=== PATIENT | female | born 1985 | race Caucasian/White ===

== ENCOUNTER 2016-12-01 12:45 | Emergency (ER) | payer BC ==
[~2016-12-01] VITALS: Ht 175.3 cm; Wt 92.9 kg
[2016-12-01 12:56] VITALS: TEMP 36.8; Ht 175.3 cm; Wt 92.9 kg
[2016-12-01] MEDS ORDERED: NPR500 PO (13:24)
[2016-12-01] MEDS ORDERED: ONDANSETRON INJ 2 MG/ML 2 ML VIAL IV STA (13:37)
[2016-12-01] MEDS ORDERED: SODIUM CHLORIDE 0.9% 1000ML 1,000 ML IV STA (13:37)
[2016-12-01] MEDS ORDERED: MoRPHine SULFATE 4 MG/ML 1 ML CARP\\VIAL IV PRN (13:45)
[2016-12-01] MEDS ORDERED: DEXAMETHASONE SOD INJ 10 MG/ML VIAL IV ONE (13:45)
--- NOTE | 2016-12-01 13:48 | EMERGENCY ROOM VISIT NOTE ---
History Report prepared by Abdelrahman: Ferdinand Kline Under the Supervision of: Dr. Raphael Gaspar D.O. First contact with patient: 13:24 Chief Complaint: HEADACHE Stated Complaint: EXTREME PAIN IN L ARM AND NECK, MIGRAINE History of Present Illness The patient is a 31 year old female with a history of migraines who presents to the Emergency Room with complaints of worsening left arm pain that started around 8 day ago. She says that she started having a migraine headache 8 days ago, and that was accompanied with left shoulder and arm pain. She additionally has been having left shoulder and arm numbness and tingling, that radiates into the left side of her back and neck. The patient has been having nausea and episodes of vomiting in the mornings when headache is the worst. She notes that the migraine headache pain is behind her left eye, but the headache has been intermittent. The shoulder and arm pain have been constant, and have been worsening each day. She has gone to Urgent Care 3 times for the pain, and each time she was told that she probably just had a pinched nerve, but they could not do anything for her there. She describes the arm pain as if she "slept on it wrong". She has never had arm pain with her migraines before, and she has been having migraines since she was 14 years old. Her migraines have been getting less frequent recently, so she has not been on any medications for it. The patient denies any shortness of breath, chest pain, or injuries to her arm. She has never had a neck injury before. The patient does use tobacco products and occasionally drinks alcohol. Her last menstrual period was 4 weeks ago, and it was normal. Source of History: patient Onset: 8 days ago Position: arm (left) Timing: worsening Associated Symptoms: + headache, + nausea, + neck pain, + numbness (and tingling in left arm and shoulder), + vomiting, No SOB, No chest pain Note: Associated symptoms: Left shoulder pain that radiates into her back. Review of Systems See HPI for pertinent positives & negatives. A total of 10 systems reviewed and were otherwise negative. Past Medical & Surgical Medical Problems: (1) HTN (hypertension) (2) Migraine Surgical Problems: (1) History of cholecystectomy Family History Cancer Gallbladder disease Hypertension Social History Smoking Status: Current Every Day Smoker Alcohol Use: occasionally Marital Status: Housing Status: lives with family Occupation Status: unemployed Current/Historical Medications Scheduled Naproxen (Naprosyn), 500 MG PO DAILY Omeprazole (Prilosec), 20 MG PO DAILY Prednisone (Prednisone Tab), 40 MG PO DAILY Scheduled PRN Oxycodone Immediate Rel Tab (Roxicodone Ir), 1-2 TAB PO Q4H PRN for Severe Pain Allergies Coded Allergies: Metoclopramide (Unverified Allergy, Unknown, NERVE ENDING DAMAGE, 12/01/16) Physical Exam Vital Signs Date Time Temp Pulse Resp B/P Pulse Ox O2 Delivery O2 Flow Rate FiO2 12/01/16 17:33 81 18 158/100 98 Room Air 12/01/16 16:45 86 18 160/101 98 Room Air 12/01/16 14:44 85 16 150/96 99 Room Air 12/01/16 14:01 85 18 154/106 99 Room Air 12/01/16 12:56 36.8 95 18 156/112 95 Room Air Physical Exam GENERAL: Patient is awake, alert, somewhat anxious and uncomfortable appearing. EYES: The conjunctivae are clear. The pupils are round and reactive. EARS, NOSE, MOUTH AND THROAT: The nose is without any evidence of any deformity. Mucous membranes are moist tongue is midline NECK: Upper cervical spine is tender to palpation. Range of motion seemed painful with extension. There was no stepoff. No anterior tenderness noted. RESPIRATORY: Normal respiratory effort is noted there is no evidence of wheezing rhonchi or rales CARDIOVASCULAR: Regular rate and rhythm noted there no murmurs rubs or gallops normal S1 normal S2 GASTROINTESTINAL: The abdomen is soft. Bowel sounds are present in all quadrants. Abdomen is nontender MUSCULOSKELETAL/EXTREMITIES: There is no evidence of gross deformity full range of motion is noted in the hips and shoulders SKIN: There is no obvious evidence of any rash. There are no petechiae, pallor or cyanosis noted. NEUROLOGIC: Patient is awake alert and oriented x3 strength is symmetric patellar reflexes are 2+ bilaterally. Tire Repair Mechanic strength symmetric. Biceps tendon reflexes were 1+ bilaterally. Medical Decision & Procedures ER Provider Diagnostic Interpretation: MRI results as stated below per interpretation by me and the radiologist. CERVICAL SPINE MRI HISTORY: Left-sided headache. Left arm pain. TECHNIQUE: Multiplanar multisequence MRI of the cervical spine was performed without the use of contrast. COMPARISON STUDY: None. FINDINGS: S cranium cervical spine. Alignment is intact. No acute fracture or subluxation. Prevertebral soft tissues and the C1-C2 interval are maintained. The visualized posterior fossa is unremarkable. The cervical spinal cord image is normal signal intensity. There is mild motion artifact resulting in suboptimal evaluation of the cervical spine. 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 There is a small focal central disc protrusion at T2-T3 resulting in partial effacement of the anterior thecal sac without cord deformity. Mild disc space narrowing at C4-C5 and C5-C6. C2-C3: No significant central canal or neural foraminal narrowing. C3-C4: No significant central canal or neural foraminal narrowing. C4-C5: Right paracentral focal disc protrusion which abuts the right anterior cord. No significant neural foraminal narrowing. C5-C6: Large left paracentral/lateral disc extrusion which abuts the left anterior cord and results in mild cord deformity. This also extends into the left foramen and along the left side of the vertebral bodies with inferior subligamentous migration. This compresses the exiting nerve root at this level results in severe left-sided neural foraminal narrowing. C6-C7: No significant central canal or neural foraminal narrowing. C7-T1: No significant central canal or neural foraminal narrowing. IMPRESSION: 1. A large left paracentral/lateral disc extrusion at C5-C6 with inferior subligamentous migration. This abuts and slight deforms the left anterior cord and compresses the exiting nerve root at this level with severe left-sided neural foraminal narrowing. 2. Right paracentral focal disc protrusion at C4-C5 which abuts the right anterior cord but does not result in significant cord deformity. 3. Small focal central disc protrusion at T2-T3 without significant central canal or neural foraminal narrowing. 4. Straightening of the cervical spine. Electronically signed by: Yuri Valle M.D. 12/01/2016 4:32 PM Dictated Date/Time: 12/01/2016 4:10 PM Brain MRI WITHOUT CONTRAST HISTORY: Mental status change. Headache. left VILA to LUE TECHNIQUE: Multiplanar multisequence MRI of the brain was performed without the use of contrast. COMPARISON STUDY: None. FINDINGS: There are no areas of restricted diffusion to suggest acute infarction. The midline structures are intact. The paranasal sinuses are clear. The mastoid air cells are clear. The ventricles and sulci are within normal limits for age. There is no mass, hematoma, midline shift. The major vascular flow-voids at the skull base are well maintained. IMPRESSION: No acute intracranial abnormality. Electronically signed by: Denzel Jalloh M.D. 12/01/2016 3:41 PM Dictated Date/Time: 12/01/2016 3:38 PM Laboratory Results 12/01/16 13:50 Red Blood Count 5.20, Mean Corpuscular Volume 79.2, Mean Corpuscular Hemoglobin 27.3, Mean Corpuscular Hemoglobin Concent 34.5, Mean Platelet Volume 8.5, Neutrophils (%) (Auto) 57.6, Lymphocytes (%) (Auto) 32.8, Monocytes (%) (Auto) 7.1, Eosinophils (%) (Auto) 1.6, Basophils (%) (Auto) 0.6, Neutrophils # (Auto) 4.00, Lymphocytes # (Auto) 2.27, Monocytes # (Auto) 0.49, Eosinophils # (Auto) 0.11, Basophils # (Auto) 0.04 12/01/16 13:50 Test 12/01/16 13:50 12/01/16 16:15 White Blood Count 6.93 K/uL (4.8-10.8) Red Blood Count 5.20 M/uL (4.2-5.4) Hemoglobin 14.2 g/dL (12.0-16.0) Hematocrit 41.2 % (37-47) Mean Corpuscular Volume 79.2 fL (80-100) Mean Corpuscular Hemoglobin 27.3 pg (25-34) Mean Corpuscular Hemoglobin Concent 34.5 g/dl (32-36) Platelet Count 320 K/uL (130-400) Mean Platelet Volume 8.5 fL (7.4-10.4) Neutrophils (%) (Auto) 57.6 % Lymphocytes (%) (Auto) 32.8 % Monocytes (%) (Auto) 7.1 % Eosinophils (%) (Auto) 1.6 % Basophils (%) (Auto) 0.6 % Neutrophils # (Auto) 4.00 K/uL (1.4-6.5) Lymphocytes # (Auto) 2.27 K/uL (1.2-3.4) Monocytes # (Auto) 0.49 K/uL (0.11-0.59) Eosinophils # (Auto) 0.11 K/uL (0-0.5) Basophils # (Auto) 0.04 K/uL (0-0.2) RDW Standard Deviation 42.9 fL (36.4-46.3) RDW Coefficient of Variation 14.8 % (11.5-14.5) Immature Granulocyte % (Auto) 0.3 % Immature Granulocyte # (Auto) 0.02 K/uL (0.00-0.02) Anion Gap 9.0 mmol/L (3-11) Est Creatinine Clear Calc Drug Dose 150.4 ml/min Estimated GFR () 137.7 Estimated GFR (Non- 118.8 BUN/Creatinine Ratio 12.8 (10-20) Calcium Level 9.1 mg/dl (8.5-10.1) Total Bilirubin 0.3 mg/dl (0.2-1) Direct Bilirubin < 0.1 mg/dl (0-0.2) Aspartate Amino Transf (AST/SGOT) 45 U/L (15-37) Alanine Aminotransferase (ALT/SGPT) 63 U/L (12-78) Alkaline Phosphatase 88 U/L (45-117) Total Protein 8.3 gm/dl (6.4-8.2) Albumin 4.1 gm/dl (3.4-5.0) Lipase 106 U/L (73-393) Human Chorionic Gonadotropin, Qual NEG (NEG) Urine Color YELLOW Urine Appearance CLEAR (CLEAR) Urine pH 7.5 (4.5-7.5) Urine Specific [place] 1.008 (1.000-1.030) Urine Protein NEG (NEG) Urine Glucose (UA) NEG (NEG) Urine Ketones NEG (NEG) Urine Occult Blood NEG (NEG) Urine Nitrite NEG (NEG) Urine Bilirubin NEG (NEG) Urine Urobilinogen NEG (NEG) Urine Leukocyte Esterase NEG (NEG) Laboratory results per my review. Medications Administered Medications (Trade) Dose Ordered Sig/Osvaldo Route Start Time Stop Time Status Last Admin Dose Admin Sodium Chloride (Nss 1000ml) 1,000 ml @ 999 mls/hr Q1H1M STAT IV 12/01/16 13:37 12/01/16 14:37 DC 12/01/16 13:37 999 MLS/HR Ondansetron HCl (Zofran Inj) 4 mg NOW STAT IV 12/01/16 13:37 12/01/16 13:39 DC 12/01/16 13:56 4 MG Morphine Sulfate (MoRPHine SULFATE INJ) 4 mg Q15M PRN IV 12/01/16 13:45 12/01/16 17:44 DC 12/01/16 13:56 4 MG Dexamethasone Sodium Phosphate (Decadron Inj) 10 mg NOW ONCE IV 12/01/16 13:45 12/01/16 13:46 DC 12/01/16 13:56 10 MG Ketorolac Tromethamine (Toradol Inj) 30 mg NOW STAT IV 12/01/16 16:43 12/01/16 16:44 DC 12/01/16 17:25 30 MG ED Course 1331: The patient was evaluated in room C7. A complete history and physical examination were performed. 1337: Ordered Zofran Inj 4 mg IV, NSS 1000 ml @ 999 mls/hr IV. 1345: Ordered Decadron Inj 10 mg IV, Morphine Sulfate Inj 4 mg IV PRN. 1638: I reevaluated the patient and she is resting comfortably. 1641: I discussed the patient with Dr. Missy Calvin and [facility] - he will see the patient at 0800 tomorrow morning. 1645: Upon reevaluation, the patient is resting comfortably. I discussed the results and treatment plan with her. She verbalized agreement of the treatment plan. She was discharged home. Medical Decision The patient's history was concerning for headache. Differential diagnosis: Etiologies such as migraine headache, meningitis, sinusitis, CO exposure, ICH, SAH, infection, tumor, headache, sinus thrombosis, arterial dissection, as well as others were entertained. Nursing notes reviewed. The patient is a 31-year-old female who presented to the emergency department for an evaluation of headache and left-sided neck pain and left upper extremity pain. The patient's symptoms appear to be consistent with cervical radiculopathy. She appears to have symmetric reflexes and has equal circulation crew leader strength. An MRI was obtained and it did show significant disc herniation. The patient was treated with IV fluids IV pain medicine and IV antiemetics. She was also given IV steroids. On subsequent reevaluation she was feeling much better. I discussed the patient's laboratory and radiographic studies with her. I also discussed her case with the on-call orthopedic spinal surgeon. The patient was set up with an appointment for the next day. The patient has had ongoing symptoms for approximately one week. I did encourage her to return to the emergency department immediately if symptoms change worsen or the need arises. Otherwise she was encouraged to continue all medications as prescribed. She was also placed in a rigid cervical collar. Consults Time Called: 1630 Consulting Physician: Dr. Missy Calvin and [facility] Returned Call: 1641 I discussed the patient with Dr. Missy Calvin and [facility] - he will see the patient at 0800 tomorrow morning. Impression Primary Impression: Cervical radiculopathy Additional Impression: Migraine headache Scribe Attestation The scribe's documentation has been prepared under my direction and personally reviewed by me in its entirety. I confirm that the note above accurately reflects all work, treatment, procedures, and medical decision making performed by me. Departure Information Dispostion Home / Self-Care Prescriptions Oxycodone Immediate Rel Tab (ROXICODONE IR) 5 Mg Tab 1-2 TAB PO Q4H Y for Severe Pain, #24 TAB Prov: Raphael Gaspar, DO 12/01/16 Prednisone (Prednisone Tab) 20 Mg Tab 40 MG PO DAILY, #20 TAB Prov: Raphael Gaspar, DO 12/01/16 Omeprazole (Prilosec) 20 Mg Capcr 20 MG PO DAILY, #30 CAP Prov: Raphael Gaspar, DO 12/01/16 Referrals No Doctor, Assigned (PCP) Forms HOME CARE DOCUMENTATION FORM, IMPORTANT VISIT INFORMATION, Work Instructions Patient Instructions ED Cervical Radiculopathy, [facility] Additional Instructions Follow-up with the orthopedic surgeon in the morning. Arrive at his office at approximately 8 a.m. to start paperwork. Rest and avoid any strenuous activity. Continue all medications as prescribed. Continue using Motrin and Tylenol as directed for mild pain. Continue using the collar especially when you are awake. You may remove the collar to sleep and to shower with. Problem Qualifiers Additional Impression: Migraine headache Migraine type: unspecified Status migrainosus presence: without status migrainosus Intractability: not intractable Qualified Codes: G43.909 - Migraine, unspecified, not intractable, without status migrainosus
[2016-12-01 14:03] LABS: BASO % 0.6 %; BASO ABS # 0.04 K/uL (0-0.2); COMPLETE YES; EOS % 1.6 %; HEMATOCRIT 41.2 % (37-47); IG% 0.3 %; LYMPH % 32.8 %; LYMPH ABS # 2.27 K/uL (1.2-3.4); MEAN CELL VOLUME 79.2 fL (80-100); MEAN CORPUSCULAR HEMOGLOBIN 27.3 pg (25-34); MEAN CORPUSCULAR HGB CONC 34.5 g/dl (32-36); MEAN PLATELET VOLUME 8.5 fL (7.4-10.4); MONO % 7.1 %; NEUT % 57.6 %; PLATELET COUNT 320 K/uL (130-400); WHITE BLOOD COUNT 6.93 K/uL (4.8-10.8)
[2016-12-01 14:24] LABS: ALT/SGPT 63 U/L (12-78); BLOOD UREA NITROGEN 9 mg/dl (7-18); BUN/CREATININE RATIO 12.8 (10-20); CALCIUM 9.1 mg/dl (8.5-10.1); CARBON DIOXIDE 25 mmol/L (21-32); CHLORIDE 104 mmol/L (98-107); CREATININE 0.67 mg/dl (0.60-1.20); GLUCOSE 81 mg/dl (70-99); POTASSIUM 3.8 mmol/L (3.5-5.1); PREG INTERNAL NEGATIVE QC NEG CLEAR BACKGROUND; PREG INTERNAL POSITIVE QC POS CONTROL LINE; SODIUM 138 mmol/L (136-145)
[2016-12-01 14:27] LABS: ALKALINE PHOSPHATASE 88 U/L (45-117); AST/SGOT 45 U/L (15-37)
--- NOTE | 2016-12-01 15:42 | DIAGNOSTIC IMAGING REPORT ---
Brain MRI WITHOUT CONTRAST HISTORY: Mental status change. Headache. left VLIA to LUE TECHNIQUE: Multiplanar multisequence MRI of the brain was performed without the use of contrast. COMPARISON STUDY: None. FINDINGS: There are no areas of restricted diffusion to suggest acute infarction. The midline structures are intact. The paranasal sinuses are clear. The mastoid air cells are clear. The ventricles and sulci are within normal limits for age. There is no mass, hematoma, midline shift. The major vascular flow-voids at the skull base are well maintained. IMPRESSION: No acute intracranial abnormality. Electronically signed by: Denzel Jalloh M.D. 12/01/2016 3:41 PM Dictated Date/Time: 12/01/2016 3:38 PM
--- NOTE | 2016-12-01 16:33 | DIAGNOSTIC IMAGING REPORT ---
CERVICAL SPINE MRI HISTORY: Left-sided headache. Left arm pain. TECHNIQUE: Multiplanar multisequence MRI of the cervical spine was performed without the use of contrast. COMPARISON STUDY: None. FINDINGS: S cranium cervical spine. Alignment is intact. No acute fracture or subluxation. Prevertebral soft tissues and the C1-C2 interval are maintained. The visualized posterior fossa is unremarkable. The cervical spinal cord image is normal signal intensity. There is mild motion artifact resulting in suboptimal evaluation of the cervical spine. 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 There is a small focal central disc protrusion at T2-T3 resulting in partial effacement of the anterior thecal sac without cord deformity. Mild disc space narrowing at C4-C5 and C5-C6. C2-C3: No significant central canal or neural foraminal narrowing. C3-C4: No significant central canal or neural foraminal narrowing. C4-C5: Right paracentral focal disc protrusion which abuts the right anterior cord. No significant neural foraminal narrowing. C5-C6: Large left paracentral/lateral disc extrusion which abuts the left anterior cord and results in mild cord deformity. This also extends into the left foramen and along the left side of the vertebral bodies with inferior subligamentous migration. This compresses the exiting nerve root at this level results in severe left-sided neural foraminal narrowing. C6-C7: No significant central canal or neural foraminal narrowing. C7-T1: No significant central canal or neural foraminal narrowing. IMPRESSION: 1. A large left paracentral/lateral disc extrusion at C5-C6 with inferior subligamentous migration. This abuts and slight deforms the left anterior cord and compresses the exiting nerve root at this level with severe left-sided neural foraminal narrowing. 2. Right paracentral focal disc protrusion at C4-C5 which abuts the right anterior cord but does not result in significant cord deformity. 3. Small focal central disc protrusion at T2-T3 without significant central canal or neural foraminal narrowing. 4. Straightening of the cervical spine. Electronically signed by: Yuri Valle M.D. 12/01/2016 4:32 PM Dictated Date/Time: 12/01/2016 4:10 PM
[2016-12-01] MEDS ORDERED: KETOROLAC TROMETHAMINE 30 MG/ML VIAL IV STA (16:43)
[2016-12-01] MEDS ORDERED: OXYC1TAB3 PO (17:06)
[2016-12-01] MEDS ORDERED: PRED20TA2 PO (17:06)
[2016-12-01] MEDS ORDERED: OMEP20CA59 PO (17:06)
[2016-12-01 17:07] LABS: URINE APPEARANCE CLEAR (CLEAR); URINE BILIRUBIN NEG (NEG); URINE COLOR YELLOW; URINE NITRITE NEG (NEG); URINE PH 7.5 (4.5-7.5); URINE SPECIFIC GRAVITY 1.008 (1.000-1.030); UROBILINOGEN NEG (NEG)
[2016-12-01 17:09] LABS: MANUAL MICROSCOPIC REQUIRED? NO; REVIEW REQ? NO
[2016-12-01 17:33] VITALS: BP 158/100; PULSE 81; O2SAT 98
[2016-12-03] MEDS ORDERED: OXYC-57 PO (16:30)
[2016-12-03] MEDS ORDERED: PRLSR20 PO (16:59)
[2016-12-03] MEDS ORDERED: PRED20TA PO (16:59)
[2016-12-03] MEDS ORDERED: VNTHFA/IN INH (17:08)
[2016-12-22] MEDS ORDERED: OXYC-57 PO (10:36)
== END 2016-12-01 17:36 | disposition home or self-care (01) ==
LOC: C.EDB 12:46 → C.EDC 17:36
DX: M54.12 Radiculopathy, cervical region (principal); G43.909 Migraine, unspecified, not intractable, without status migrainosus; F17.200 Nicotine dependence, unspecified, uncomplicated; I10 Essential (primary) hypertension; Z90.49 Acquired absence of other specified parts of digestive tract

== ENCOUNTER 2016-12-21 05:45 | Observation (INO) | payer BC ==
--- NOTE | 2016-12-18 12:23 | HISTORY & PHYSICAL EXAMINATION ---
DATE OF ADMISSION: 12/21/2016 CHIEF COMPLAINT: Neck and arm pain, weakness. She has 2 level significant cervical disk disease at C4-C5 and C5-C6, disk space narrowing, kyphosis and set for anterior cervical diskectomy and fusion, 2 levels. Problems have been going on for 10 years in duration. She has underlying scoliosis. She has what is called torticollis as well, fortunately no fevers, sweats, chills, bowel and bladder issues. MEDICAL HISTORY: Negative for positive for anxiety and hypertension. PAST SURGICAL HISTORY: Hernia. ALLERGIES: REGLAN. MEDICATIONS: Oxycodone, prednisone, Prilosec, and Naprosyn. REVIEW OF SYSTEMS: Denies any blurred vision, double vision, tinnitus or vertigo. Denies chest pain, palpitation, shortness of breath. No nausea, vomiting, urgency, frequency or loss of bowel and bladder function. Her major complaint is of musculoskeletal neck and arm pain, weakness. PHYSICAL EXAMINATION: VITAL SIGNS: Blood pressure 130/80, pulse of 80, respirations 16, temperature 97.4. HEENT: Pupils react to light and accommodation. Ear, nose and throat clear. CARDIAC: Normal S1, S2, no S3. LUNGS: Clear to auscultation. No rales, rhonchi or wheezing. 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 No upper motor neuron pathology. IMAGES: Demonstrate discogenic issues at C4-C5 and C5-C6 with herniations, kyphosis and cord compression. ASSESSMENT: Cord compression C4-C5 and C5-C6. DISPOSITION: Includes surgery of 2-level ACDF cervical spine under general anesthetic on December 21 at [facility].
[2016-12-21] VITALS (17 sets, daily range): BP systolic 113–178; BP diastolic 71–113; PULSE 71–91; TEMP 36.4–37; O2SAT 95–100; Ht 175.3 cm; Wt 93.2 kg
[~2016-12-21] VITALS: Ht 175.3 cm; Wt 93.2 kg
[~2016-12-21 05:45] MED LIST: CEFAZOLIN 2000 MG/60 ML D5W 60 ML IV SCH; LACTATED RINGER'S 1000ML 1,000 ML IV SCH; LACTATED RINGER'S 1000ML 500 ML IV ONE; NPR500 PO; NSS 1000ML IV SCH; OXYC-57 PO; PRED20TA PO; PRLSR20 PO; VNTHFA/IN INH
[2016-12-21] MEDS ORDERED: CEFAZOLIN 2000 MG/60 ML D5W 60 ML IV SCH (06:00)
[2016-12-21] MEDS ORDERED: NSS 1000ML IV SCH (06:00)
[2016-12-21] MEDS ORDERED: LACTATED RINGER'S 1000ML 1,000 ML IV SCH (06:00)
[2016-12-21 06:44] LABS: PREG INTERNAL NEGATIVE QC NEG CLEAR BACKGROUND; PREG INTERNAL POSITIVE QC POS CONTROL LINE
[2016-12-21] MEDS ORDERED: GELATIN SPONGE SZ 100 ONE (06:59)
[2016-12-21] MEDS ORDERED: BUPIVACAINE/EPINEPHRINE 0.5% MPF 1:200,000 30 ML VIAL ONE (06:59)
[2016-12-21] MEDS ORDERED: THROMBIN FOR SOLN 20000 UNIT KIT ONE (06:59)
[2016-12-21] MEDS ORDERED: BACITRACIN 50000 UNIT VIAL ONE (06:59)
[2016-12-21] MEDS ORDERED: MIDAZOLAM HCL 1 MG/ML 2ML VIAL ONE (07:00)
[2016-12-21] MEDS ORDERED: PROPOFOL IV EMULSION 10 MG/ML 20 ML VIAL IV ONE (07:00)
[2016-12-21] MEDS ORDERED: NEOSTIGMINE METHYLSULFATE 5 MG/5 ML SYR ONE (07:00)
[2016-12-21] MEDS ORDERED: GLYCOPYRROLATE INJ 0.2 MG/ML VIAL ONE (07:00)
[2016-12-21] MEDS ORDERED: ROCURONIUM BROMIDE 10 MG/ML 5 ML VIAL ONE (07:00)
[2016-12-21] MEDS ORDERED: FENTANYL CITRATE INJ 50 MCG/1 ML 2 ML VIAL ONE ×2 (07:00→09:43)
[2016-12-21] MEDS ORDERED: DEXAMETHASONE SOD INJ 4 MG/ML VIAL ONE (07:00)
[2016-12-21] MEDS ORDERED: LIDOCAINE HCL 2% 2 ML VIAL (20MG/ML) ONE (07:00)
[2016-12-21] MEDS ORDERED: HYDROmorphone INJ 2 MG/ML SYR/VIAL ONE (07:00)
[2016-12-21] MEDS ORDERED: ONDANSETRON INJ 2 MG/ML 2 ML VIAL ONE (07:00)
[2016-12-21] MEDS ORDERED: SODIUM CHLORIDE 0.9% INJ 10 ML VIAL ONE (07:04)
--- NOTE | 2016-12-21 07:15 | History & Physical Bridge Note ---
H&P Re-Evaluation Bridge Note: I have examined the patient, reviewed the History & Physical and in the interval since the performance of the History & Physical I have noted the following changes of clinical significance: No changes noted
[2016-12-21] MEDS ORDERED: LABETALOL HCL IV 5 MG/ML 20ML IV ONE (08:09)
[2016-12-21] MEDS ORDERED: EpHEDrine SULFATE INJ 50 MG/ML AMP ONE (09:54)
--- NOTE | 2016-12-21 10:01 | DIAGNOSTIC IMAGING REPORT ---
Cervical SPINE, INTRAOPERATIVE FLUOROSCOPY HISTORY: C4 C6 ACDF. FLUOROSCOPY TIME: 7 seconds. FINDINGS: Intraoperative fluoroscopy was provided for the cervical spine. 2 fluoroscopic spot images were obtained. C4-C6 ACDF. The hardware appears intact. IMPRESSION: Fluoroscopy provided for a C4-C6 ACDF.. Electronically signed by: Yuri Valle M.D. 12/21/2016 9:59 AM Dictated Date/Time: 12/21/2016 9:58 AM
--- NOTE | 2016-12-21 10:13 | [facility] Post Operative Brief Note ---
Immediate Operative Summary Operative Date Dec 21, 2016. Pre-Operative Diagnosis Cord Compression C4-C6 Post-Operative Diagnosis Cord Compression C4-C6 Procedure(s) Performed C4-C5, C5-C6 Anterior Cervical Discectomy and Fusion with Iliac Crest Bone Graft Surgeon Dr. Louis Plate Drying Machine Tender Surgeon(s) HAKEEM Stone Estimated Blood Loss 30 ML Specimens none per surgeon Complication(s) None Disposition Recovery Room / PACU
[2016-12-21] MEDS ORDERED: ONDANSETRON INJ 2 MG/ML 2 ML VIAL IV PRN ×2 (10:15→10:30)
[2016-12-21] MEDS ORDERED: MAGNESIUM HYDROXIDE SUSP 30 ML UDC PO PRN (10:15)
[2016-12-21] MEDS ORDERED: HYDROmorphone INJ 0.5 MG/0.5 ML SYR IV PRN ×2 (10:15→10:30)
[2016-12-21] MEDS ORDERED: ACETAMINOPHEN IV 100 ML IV PRN (10:15)
[2016-12-21] MEDS ORDERED: DEXAMETHASONE INJ 8 MG in SYRINGE 0 ML IV PRN (10:15)
[2016-12-21] MEDS ORDERED: NALOXONE HCL 0.4 MG/1 ML VIAL/CARP IV PRN ×2 (10:15→10:30)
[2016-12-21] MEDS ORDERED: ALBUTEROL HFA 8 GM INHALER INH PRN (10:15)
[2016-12-21] MEDS ORDERED: RACEPINEPHRINE 2.25% NEBU SOLN 0.5 ML VIAL INH PRN (10:15)
[2016-12-21] MEDS ORDERED: LABETALOL HCL IV 5 MG/ML 20ML IV PRN (10:30)
[2016-12-21] MEDS: HYDROmorphone INJ 2 MG/ML SYR/VIAL ONE ×2 (10:30→10:44)
[2016-12-21] MEDS ORDERED: ATROPINE SULFATE 0.1 MG/ML 5ML SYR IV PRN (10:30)
[2016-12-21] MEDS ORDERED: ALBUTEROL 0.083% NEBU SOLN 3 ML VIAL INH PRN (10:30)
[2016-12-21] MEDS ORDERED: EpHEDrine SULFATE INJ 50 MG/ML AMP IV PRN (10:30)
[2016-12-21] MEDS ORDERED: PROMETHAZINE HCL INJ 12.5 MG in SODIUM CHLORIDE 0.9% 50ML 50 ML IV PRN (10:30)
[2016-12-21] MEDS ORDERED: FLUMAZENIL 0.1 MG/1 ML 10 ML VIAL IV PRN (10:30)
[2016-12-21] MEDS ORDERED: IV FLUIDS COMPLETED PRN (11:15)
--- NOTE | 2016-12-21 11:58 | Anesthesiology Progress Note ---
Anesthesia Post Op Note Date & Time Dec 21, 2016 at 11:58 Vital Signs Pain Intensity: 6 Vital Signs Past 12 Hours Date Time Temp Pulse Resp B/P Pulse Ox O2 Delivery O2 Flow Rate FiO2 12/21/16 11:38 36.5 12/21/16 11:30 91 16 99/55 98 Nasal Cannula 4 12/21/16 11:20 89 16 101/55 98 Nasal Cannula 4 12/21/16 11:10 81 16 121/62 98 Nasal Cannula 4 12/21/16 11:00 36.5 85 16 109/69 98 Nasal Cannula 4 12/21/16 10:50 87 16 138/79 97 Nasal Cannula 4 12/21/16 10:40 87 16 128/75 96 Nasal Cannula 4 12/21/16 10:32 87 18 97 Room Air 12/21/16 10:30 87 16 131/78 95 Mask 10 12/21/16 10:20 96 16 134/80 93 Mask 10 12/21/16 10:14 37.0 96 16 137/79 94 Mask 10 12/21/16 06:14 37 87 20 136/103 97 Room Air Notes Mental Status: alert / awake / arousable, participated in evaluation Pt Amnestic to Procedure: Yes Nausea / Vomiting: adequately controlled Pain: adequately controlled Airway Patency, RR, SpO2: stable & adequate BP & HR: stable & adequate Hydration State: stable & adequate Anesthetic Complications: no major complications apparent
[2016-12-21] MEDS: HYDROmorphone INJ 1 MG/ML SYR IV PRN ×4 (12:03→22:38)
[2016-12-21] MEDS ORDERED: PNEUMOCOCCAL ADMINISTRATION CHARGE ONE (12:30)
[2016-12-21] MEDS: SODIUM CHLORIDE 0.9% 1000ML 1,000 ML IV SCH (12:30)
[2016-12-21] MEDS ORDERED: PNEUMOCOCCAL POLYSACCHARIDES 25 MCG/0.5 ML VIAL/SYR IM. ONE (12:30)
[2016-12-21] MEDS: HYDROCODONE/ACETAMOPHEN 5/325MG TAB PO PRN ×2 (13:13→20:39)
[2016-12-21] MEDS ORDERED: PANTOprazole SOD 40 MG TAB PO ONE (13:30)
[2016-12-21] MEDS ORDERED: NURSING VERBAL MED ORDER ONE ×2 (13:30→16:30)
[2016-12-21] MEDS: LORAZEPAM INJ 0.5 MG in SYRINGE 0.75 ML IV PRN (13:52)
[2016-12-21] MEDS: RANITIDINE HCL 150 MG TAB PO PRN ×2 (14:14→23:59)
[2016-12-21] MEDS: CEFAZOLIN IV 1,000 MG in DEXTROSE 5% 50ML 50 ML IV SCH ×2 (15:54→23:51)
[2016-12-21] MEDS: DEXAMETHASONE INJ 6 MG in SYRINGE 0 ML IV SCH ×2 (15:55→23:52)
--- NOTE | 2016-12-21 16:39 | OPERATIVE REPORT ---
DATE OF OPERATION: 12/21/2016 PREOPERATIVE DIAGNOSES: Spinal cord compression and kyphosis and disk herniation C4-C5 and C6-C6 cervical spine. POSTOPERATIVE DIAGNOSES: Same. PROCEDURE: Include an anterior approach cervical spine anterior cervical discectomy at C4-C5, C5-C6, iliac crest bone anterior fusion anterior plating of C4-C5, C5-C6 cervical spine. SURGEON: Dr. Louis. SIGNAL INTELLIGENCE/ELECTRONIC WARFARE: Quinton Mcpherson PA-C COMPLICATIONS: There were no complications. BLOOD LOSS: 30 mL. ANESTHETIC: General. She moved all 4 extremities well after extubation. DESCRIPTION OF PROCEDURE: The patient was taken to the operating room, a general intubated anesthetic provided to the patient, kept supine, scrubbed first with Betadine and prepped with ChloraPrep. Draped sterile. We made a transverse skin incision essentially at C5 area, the cervical spine dissecting the soft tissue. We cauterized all vascular bleeding. We then came down on the cervical spine at C5-C6. We then did formal discectomies in a classic Jorge Arriaga approach doing discectomies at C4-C5 and C5-C6. We were backed in through the posterior longitudinal ligament. I was out to the uncovertebral joints bilaterally at both levels, all visible disc material removed. I also did foraminotomies. We then went to the left iliac crest, I was able to make a skin incision, fascial incision, dissecting the iliac crest. I was able to harvest 2 bone plugs for the cervical spine. The bone plugs measured approximately 6 mm in height tapering to 5, approximately 14 mm in length, approximately 12-14 mm left to right. These were placed into the discectomy sites first at C5-C6 and at C4-C5, and an anterior plate of 30 mm placed over the construct that fit perfect. We irrigated, closed in layers the cervical spine with 2-0 and 4-0 Monocryl over a drain. The iliac crest closed as well with 1 Vicryl, 2-0 and 3-0 nylon. Sterile dressings applied. The patient was successfully extubated to PACU stable with a cervical collar in place. Sponge and needle count correct at the close. There were no complications. I attest to the content of the Intraoperative Record and any orders documented therein. Any exceptio ns are noted below.
[2016-12-21] MEDS ORDERED: CALCIUM CARBONATE 500 MG CHEWABLE PO PRN (17:45)
[2016-12-21] MEDS: DOCUSATE SODIUM 100 MG CAP PO SCH (20:30)
[2016-12-22] VITALS (22 sets, daily range): BP systolic 143–181; BP diastolic 89–109; PULSE 89–115; TEMP 36.5–37.3; O2SAT 94–100
[2016-12-22] MEDS: SODIUM CHLORIDE 0.9% 1000ML 1,000 ML IV SCH (00:45)
[2016-12-22] MEDS: HYDROmorphone INJ 1 MG/ML SYR IV PRN ×3 (02:41→10:34)
[2016-12-22] MEDS: HYDROCODONE/ACETAMOPHEN 5/325MG TAB PO PRN ×3 (04:08→14:04)
[2016-12-22] MEDS ORDERED: NURSING VERBAL MED ORDER ONE (08:00)
[2016-12-22] MEDS: LORAZEPAM INJ 0.5 MG in SYRINGE 0.75 ML IV PRN (08:14)
[2016-12-22] MEDS: CEFAZOLIN IV 1,000 MG in DEXTROSE 5% 50ML 50 ML IV SCH (08:14)
[2016-12-22] MEDS: DEXAMETHASONE INJ 6 MG in SYRINGE 0 ML IV SCH (08:14)
[2016-12-22] MEDS ORDERED: PANTOprazole SOD 40 MG TAB PO SCH (09:00)
[2016-12-22] MEDS: DOCUSATE SODIUM 100 MG CAP PO SCH (09:34)
[2016-12-22] MEDS ORDERED: OXYC-57 PO (10:36)
--- NOTE | 2016-12-22 10:37 | Discharge Instructions ---
Discharge Instructions Date of Service Dec 22, 2016. Admission Reason for Admission: Cervical Disc Displacement Discharge Discharge Diagnosis / Problem: cord compression Discharge Goals Goal(s): Improve function Activity Recommendations Activity Limitations: as noted below Lifting Limitations: gradually increase as tolerated Exercise/Sports Limitations: until after follow-up appointment May Resume Sexual Activity: after follow-up appointment Shower/Bathe: keep incision dry Driving or Machine Use: . Instructions / Follow-Up Instructions / Follow-Up MEDICATIONS: Please take your prescriptions as instructed at your pre-op appointment. SPECIAL CARE: The following information is intended to answer some of the common questions and concerns regarding your surgery. Each patient is an individual and receives individual counselling throughout the course of treatment, from diagnosis to surgery all the way through recovery. What follows is not an exhaustive list, but should be a useful guide to some of the common questions and concerns patients have regarding their surgeries. These are not provided to keep you from calling us; rather, they give you something accurate and concrete to reference as you recover from your procedure. If you need us, we are available to you. As always, if you are not sure about something, call us at [phone]. MEDICAL EMERGENCIES: For these conditions, call 911 or go to your local hospital-based Emergency Department - not [facility] or equivalent. * Paralysis * Severe chest pain or difficulty breathing * Swelling or redness of either leg Spine procedures can be rather complex and though complications are rare, they do occur. In such cases, effective advice regarding emergency situations cannot always be addressed over the telephone. You may be referred to the emergency department for more effective management of your problem. Activity Limitations: It is important to give your body time to heal, so please limit your activities : * In general, don't do anything that moves your spine too much. You should avoid contact sports, twisting or heavy lifting while you recover. * 5-10 pounds is all you should attempt to lift. * You should not plan on driving for approximately 3 weeks and you should avoid traveling more than 30-45 minutes at a time. Longer trips should be broken down with walking breaks spaced appropriately. * Physical therapy is not usually required. * Walking and good posture practices will help you recover and regain your function. * Avoid straining or sudden changes in position. * In general, the goal is to take it easy and recover. Don't cause any new problems. Just relax. Showers: * Do not take a bath, use a Jacuzzi or hot tub or otherwise submerge your incision. * It is usually safe to take a shower 4-5 days after your surgery. * Your incision does not require any special creams or ointments. * Simply clean it with soap and water, dry and re-dress with a clean bandage afterwards. Incision: * Keep incision clean, dry and protected until your first follow-up appointment. * Some amount of drainage and redness is normal. Any drainage should be fairly clear and not have a foul odor. * If you feel anything is wrong or you have excessive drainage, please call us. * Your stitches and sola will be removed 10-14 days after your surgery. At the time of your first post-op visit. * Neck surgeries are typically closed with a suture underneath the skin. The steri-strips over the incision should be maintained until we see you in the office. Bracing: * You may be provided with a back or neck brace to encourage good posture and prevent injury. It will remind you not to do too much as you heal and will alert others to the fact that you have had a surgery. * Back braces may be removed for showers and when you are resting at home. They must be worn when you are walking around for any period of time or for travel. * For neck surgery, you will likely be provided with two cervical collars. The soft collar (Roosevelt or foam rubber) is worn most commonly throughout the day and while sleeping. The plastic collar (provided at the hospital) is for showering/bathing. * Except while eating, collars should remain in place. More specifically, bracing is provided for a purpose and should be worn. * Please obtain your brace or collars prior to your operation and bring them to the hospital with you on the day of surgery. * You should also bring your collars to your post-op appointment with Dr. Louis. You should always take good care of your body and practice healthy habits, especially following surgery. You should: * Follow your doctor's treatment plan * Sit and stand properly with good posture (ears over shoulders, shoulders over hips) Don't slouch * Learn to lift correctly * Exercise regularly (low-impact aerobic exercise is especially good, but check with your doctor first) * Generally, be up and walking for 5-10 minutes at a time at least 3-4 times per day from the day you get home * Increasing walking to tolerance until you can walk for 20-30 minutes at a time * Attain and maintain a healthy body weight * Eat healthy foods ( a well-balanced, low-fat diet rich in fruits and vegetables) and get enough calcium * Avoid excessive use of alcohol When to call our office - If you notice any of the following: * Increased pain not relieve by pain medicine * Fevers greater then 100 degrees F, chills or flu symptoms * Increased redness around incision * Drainage from the incision that is not clear * Any foul smelling drainage * Swelling or fluid collection beneath the skin Miscellaneous: * In the hospital, you may be given a walker or cane for support while walking. These are temporary needs and are intended to prevent injuries due to falls. You may discontinue them when you feel strong and steady enough on your feet. * Sleep in a comfortable position. We find that many patients find a lounge chair or recliner with several pillows to be beneficial in the early post-operative period. * The support stockings should be used for 7-10 days and may be discontinued when you are back to walking more and conducting usual household activities. No problem is insignificant. We are here to help you and get you well. Contact us at [phone]. Definitions: Foraminotomy: If part of the disc or a bone spur (osteophyte) is pressing on a nerve as it leaves the vertebra (through an exit called the foramen), a foraminotomy may be done. Otomy means "to make an opening." A foraminotomy is making the opening of the foramen larger, so the nerve can exit without being compressed. Laminotomy: Similar to the foraminotomy, a laminotomy makes a larger opening, this time in your bony plate protecting your spinal canal and spinal cord (the lamina). The lamina may be pressing on your nerve, so the surgeon may make more room for the nerves using a laminotomy. Laminectomy: Sometimes, a laminotomy is not sufficient. The surgeon may need to remove all or part of the lamina. This procedure is called a laminectomy. This can often be done at many levels without any harmful effects. Current Hospital Diet Patient's current hospital diet: Clear Liquid Diet Discharge Diet Recommended Diet: Clear Liquid Diet Procedures Procedures Performed: C4-C5, C5-C6 Anterior Cervical Discectomy and Fusion with Iliac Crest Bone Graft Pending Studies Studies pending at discharge: no Medical Emergencies . Who to Call and When: Medical Emergencies: If at any time you feel your situation is an emergency, please call 911 immediately. . Non-Emergent Contact Non-Emergency issues call your: Surgeon Call Non-Emergent contact if: your pain is worsening . "Provider Documentation" section prepared by James Louis. VTE Core Measure Inpt VTE Proph given/why not?: Treatment not indicated
--- NOTE | 2016-12-22 10:50 | DISCHARGE SUMMARY ---
SUBJECTIVE: She is alert, oriented, improved pain control. She has iliac crest pain, cervical spine pain, but in my opinion stable and I am rounding on her at 7:30 this morning. OBJECTIVE: Vital signs stable. The wounds are clean and dry. No dressing discharge. ASSESSMENT: Status post 2-level ACDF cervical spine completed yesterday morning approximately 9:30 a.m. DISPOSITION: We will get her up and ambulatory again today. Cervical collar. Dressing change. I anticipate her to be discharged home later on this afternoon. I would estimate about 5:00 p.m. I feel that is an appropriate for discharge. She has instructions, precautions from the office and from the hospital. Cervical collar. A prescription for Percocet is on her chart.
[2016-12-22] MEDS ORDERED: OXYCODONE/ACETAMINOPHEN 5-325 TAB PO PRN (15:45)
[2016-12-23] MEDS ORDERED: BISACODYL 5 MG TABEC PO PRN (06:00)
[2016-12-23] MEDS ORDERED: BISACODYL 10 MG SUPP PR PRN (06:00)
== END 2016-12-22 20:15 | disposition home or self-care (01) ==
LOC: ENRESERVDT → ENRESERVTM → C.ACU 05:45 → C.3E 10:15
PROVIDERS: ADMIT Orthopaedic Surgery Orthopaedic Surgery of the Spine; ATTEND Orthopaedic Surgery Orthopaedic Surgery of the Spine
DX: M50.321 Other cervical disc degeneration at C4-C5 level (principal); M41.9 Scoliosis, unspecified

== ENCOUNTER 2016-12-27 12:09 | Emergency (ER) | payer BC ==
[~2016-12-27] VITALS: Ht 175.3 cm; Wt 90.9 kg
[~2016-12-27 12:09] MED LIST changes: -CEFAZOLIN 2000 MG/60 ML D5W 60 ML IV SCH; -LACTATED RINGER'S 1000ML 1,000 ML IV SCH; -LACTATED RINGER'S 1000ML 500 ML IV ONE; -NSS 1000ML IV SCH; -PRED20TA PO
[2016-12-27 12:18] VITALS: TEMP 36.7; Ht 175.3 cm; Wt 90.9 kg
[2016-12-27] MEDS ORDERED: MoRPHine SULFATE 10 MG/ML CARP/VIAL IV STA (13:16)
[2016-12-27] MEDS ORDERED: ONDANSETRON INJ 2 MG/ML 2 ML VIAL IV STA (13:16)
[2016-12-27] MEDS ORDERED: SODIUM CHLORIDE 0.9% 1000ML 1,000 ML IV ONE (13:30)
[2016-12-27] MEDS ORDERED: MoRPHine SULFATE 4 MG/ML 1 ML CARP\\VIAL ONE (13:30)
[2016-12-27] MEDS ORDERED: MoRPHine SULFATE 2 MG/ML CARP ONE (13:36)
[2016-12-27] MEDS ORDERED: HYDROmorphone INJ 0.5 MG/0.5 ML SYR IV STA (14:28)
[2016-12-27 15:06] LABS: BASO % 0.3 %; BASO ABS # 0.02 K/uL (0-0.2); COMPLETE YES; EOS % 2.2 %; HEMATOCRIT 26.8 % (37-47); IG% 0.6 %; LYMPH % 24.3 %; LYMPH ABS # 1.69 K/uL (1.2-3.4); MEAN CELL VOLUME 81.5 fL (80-100); MEAN CORPUSCULAR HEMOGLOBIN 27.4 pg (25-34); MEAN CORPUSCULAR HGB CONC 33.6 g/dl (32-36); MEAN PLATELET VOLUME 8.5 fL (7.4-10.4); MONO % 7.9 %; NEUT % 64.7 %; PLATELET COUNT 382 K/uL (130-400); RED BLOOD COUNT 3.29 M/uL (4.2-5.4); WHITE BLOOD COUNT 6.96 K/uL (4.8-10.8)
[2016-12-27 15:24] LABS: BUN/CREATININE RATIO 14.3 (10-20); CALCIUM 8.7 mg/dl (8.5-10.1); CREATININE 0.63 mg/dl (0.60-1.20)
[2016-12-27] MEDS ORDERED: OXYC-57 PO (15:56)
[2016-12-27 16:10] VITALS: BP 148/101; PULSE 99; O2SAT 97
[2016-12-27 16:55] LABS: URINE APPEARANCE TURBID (CLEAR); URINE BILIRUBIN NEG (NEG); URINE COLOR YELLOW; URINE EPITHELIAL CELL AUTO >30 /lpf (0-5); URINE NITRITE NEG (NEG); URINE PH 8.5 (4.5-7.5); URINE SPECIFIC GRAVITY 1.013 (1.000-1.030); UROBILINOGEN NEG (NEG)
[2016-12-27 16:59] LABS: MANUAL MICROSCOPIC REQUIRED? NO; REVIEW REQ? NO
--- NOTE | 2016-12-28 15:49 | EMERGENCY ROOM VISIT NOTE ---
ED Visit Note First contact with patient: 13:00 Chief Complaint: I am having pain over my recent surgical site. History of Present Illness: Ms. Horowitz is a 31-year-old white female who ambulates into the ED accompanied by her mother and a male friend complaining of pain over a left hip surgical site. Patient reports 6 days ago she had a skin graft taken off of her left hip for a cervical spine fusion. She was discharged home in stable condition and given Percocet for pain. Patient reports approximately 8 hours before she arrived in the emergency department she developed increasing pain over her surgical site. She reports since that time her pain has been constant and gradually increasing in intensity. She describes the pain as a deep achy sensation with occasional throbbing. She rates her overall discomfort 9/10. Her pain is nonradiating. Her pain worsens with palpation of the surgical site. She has not identified any alleviating factors related to her discomfort. She reports she did take 1 Percocet tablet approximately 6 hours prior to coming to the hospital; without relief of her discomfort. Associated with the pain she reports that she has been having chills but no lázaro fever, she has been nauseated but has not vomited. She denies any recent direct trauma to the area, sweats, other skin eruptions, other skin color changes, chest pain, shortness of breath, abdominal pain, nausea, vomiting, pain at her cervical incision area, back pain, bloody stools, bloody urine, urinary symptoms. Additionally she reports she did not contact her surgeon for advice prior to coming to the hospital. Review of Systems: As noted above in history of present illness. All body systems were reviewed and found to be negative as noted above. Past Medical History: As previously noted, hypertension, unspecified skin disease, asthma, bronchitis, status post hernia repair. Current Medications: Albuterol, Naprosyn, Percocet. Allergies to Medications: Reglan. Social History: Patient is currently employed; she feels safe in her home environment; she denies tobacco and alcohol use. Physical Examination: Vital Signs: Date Time Temp Pulse Resp B/P Pulse Ox O2 Delivery O2 Flow Rate FiO2 12/27/16 16:10 99 18 148/101 97 12/27/16 14:51 85 16 158/96 12/27/16 12:18 36.7 100 18 95 Room Air GENERAL: 31-year-old female in moderate distress due to pain, nontoxic-appearing , afebrile and hemodynamically stable. NEUROLOGICAL: Awake, alert and oriented to person, place and time. Answering questions appropriately and following commands. Normal gait. Good hand eye coordination. No focal motor or sensory deficits. SKIN: Warm, dry and pink. HEENT: Atraumatic and normocephalic. PERRLA. Sclera white and conjunctiva pink. No drainage from naris. Oral cavity moist and pink. Pharynx is nonerythematous or edematous. Speech normal. No lymphadenopathy. Trachea midline. No jugular venous distention. BACK: No tenderness over the bony spine. No CVA tenderness. THORAX: Lungs sounds are clear to auscultation and equal bilaterally with symmetrical chest wall. No wheezing, rales or rhonchi. No crepitus, tenderness , subcutaneous air or deformities noted. HEART: Regular rate and rhythm. No gallops, rubs or murmurs are appreciated. ABDOMEN: Flat, soft and nontender. Positive bowel sounds in all quadrants. No guarding, rigidity or organomegaly. PELVIS: Over the left lateral aspect of the iliac portion of the pelvis patient has a large ecchymotic area that is not elevated indicating hematoma. When mother looked at the area she felt the bruising showed improvement. Her surgical incision was clean dry and intact without signs of infection. The area was very tender to palpation. EXTREMITIES: Moves all extremities well on command and with purpose. All distal neurovascular statuses are intact and equal bilaterally. ED Course: Patient is assessed as noted above. Laboratory Testing: Test 12/27/16 14:54 12/27/16 15:20 Range/Units White Blood Count 6.96 4.8-10.8 K/uL Red Blood Count 3.29 4.2-5.4 M/uL Hemoglobin 9.0 12.0-16.0 g/dL Hematocrit 26.8 37-47 % Mean Corpuscular Volume 81.5 80-100 fL Mean Corpuscular Hemoglobin 27.4 25-34 pg Mean Corpuscular Hemoglobin Concent 33.6 32-36 g/dl Platelet Count 382 130-400 K/uL Mean Platelet Volume 8.5 7.4-10.4 fL Neutrophils (%) (Auto) 64.7 % Lymphocytes (%) (Auto) 24.3 % Monocytes (%) (Auto) 7.9 % Eosinophils (%) (Auto) 2.2 % Basophils (%) (Auto) 0.3 % Neutrophils # (Auto) 4.51 1.4-6.5 K/uL Lymphocytes # (Auto) 1.69 1.2-3.4 K/uL Monocytes # (Auto) 0.55 0.11-0.59 K/uL Eosinophils # (Auto) 0.15 0-0.5 K/uL Basophils # (Auto) 0.02 0-0.2 K/uL RDW Standard Deviation 47.1 36.4-46.3 fL RDW Coefficient of Variation 15.9 11.5-14.5 % Immature Granulocyte % (Auto) 0.6 % Immature Granulocyte # (Auto) 0.04 0.00-0.02 K/uL Nucleated RBC Absolute Count (auto) 0.02 0-0 K/uL Nucleated Red Blood Cells % 0.3 % Sodium Level 143 136-145 mmol/L Potassium Level 4.0 3.5-5.1 mmol/L Chloride Level 108 98-107 mmol/L Carbon Dioxide Level 28 21-32 mmol/L Anion Gap 7.0 3-11 mmol/L Blood Urea Nitrogen 9 7-18 mg/dl Creatinine 0.63 0.60-1.20 mg/dl Est Creatinine Clear Calc Drug Dose 158.3 ml/min Estimated GFR () 140.5 Estimated GFR (Non- 121.2 BUN/Creatinine Ratio 14.3 10-20 Random Glucose 83 70-99 mg/dl Calcium Level 8.7 8.5-10.1 mg/dl Urine Color YELLOW Urine Appearance TURBID CLEAR Urine pH 8.5 4.5-7.5 Urine Specific [place] 1.013 1.000-1.030 Urine Protein NEG NEG Urine Glucose (UA) NEG NEG Urine Ketones NEG NEG Urine Occult Blood NEG NEG Urine Nitrite NEG NEG Urine Bilirubin NEG NEG Urine Urobilinogen NEG NEG Urine Leukocyte Esterase NEG NEG Urine WBC (Auto) 1-5 0-5 /hpf Urine RBC (Auto) 0-4 0-4 /hpf Urine Hyaline Casts (Auto) 1-5 0-5 /lpf Urine Epithelial Cells (Auto) >30 0-5 /lpf Urine Bacteria (Auto) NEG NEG Patient was hydrated with normal saline; she was initially ordered morphine for pain but then refused reporting she would prefer the Dilaudid. She was given a 0.5 mg of Dilaudid IV and 4 mg of Zofran IV for nausea. Patient was reassessed multiple times during her stay in the emergency department. Patient's case was reviewed with Dr. Brandon; we agreed on diagnostic approach, treatment, disposition and plan. Patient was educated about today's findings and instructed on her treatment plan ; she verbalizes understanding and agreement with this plan. Clinical Impression: Pain at left iliac surgical site. Postsurgical anemia. Decision-Making: Initially my differential diagnosis I considered postsurgical infection, hematoma formation and other causes. Disposition: Patient discharged home in stable condition accompanied by her mother; prior to departure she was reassessed and subjectively reported she was feeling much better. Plan: Patient did inform me that she had only one Percocet tablet left from her prescription and that her follow-up visit would be informed days. She was given an additional prescription for Percocet 5/325 mg 1-2 tablets every 6 hours. Patient was also encouraged to continue her current other medications as prescribed. Patient was encouraged use ice over the areas of pain. Patient was encouraged to keep her upcoming appointment with orthopedics. Patient was also found to be anemic and was encouraged to follow-up with family physician for recheck of her hemoglobin and hematocrit later this week. Patient was encouraged return ED for worsening/uncontrolled pain, fevers, skin redness/swelling, red streaking or any new/concerning symptoms.
== END 2016-12-27 16:11 | disposition home or self-care (01) ==
LOC: C.EDB 12:10 → C.EDD 16:11
DX: G89.18 Other acute postprocedural pain (principal); D64.9 Anemia, unspecified; I10 Essential (primary) hypertension; J45.909 Unspecified asthma, uncomplicated

== ENCOUNTER 2017-01-17 12:59 | Emergency (ER) | payer BC ==
[~2017-01-17] VITALS: Ht 175.3 cm; Wt 85.7 kg
[~2017-01-17 12:59] MED LIST changes: -PRLSR20 PO
[2017-01-17 13:02] VITALS: BP 132/81; TEMP 36.8; Ht 175.3 cm; Wt 85.7 kg
[2017-01-17] MEDS ORDERED: CYCL10TA6 PO (13:13)
[2017-01-17] MEDS ORDERED: HYDROCODONE/ACETAMOPHEN 5/325MG TAB PO STA (13:53)
[2017-01-17] MEDS ORDERED: DEXAMETHASONE SOD INJ 10 MG/ML VIAL IV STA (13:53)
[2017-01-17] MEDS ORDERED: DEXAMETHASONE SOD INJ 10 MG/ML VIAL IM STA (14:03)
--- NOTE | 2017-01-17 14:21 | DIAGNOSTIC IMAGING REPORT ---
L-SPINE MIN 4 VIEWS ROUTINE CLINICAL HISTORY: Low back pain, radiating to right leg COMPARISON STUDY: No previous studies for comparison. FINDINGS: There is a transitional vertebra present. There is a mild spinal curvature convex to the left. There are minor degenerative changes. No acute fractures or traumatic subluxations are visualized. No destructive lesions are evident. IMPRESSION: Minor spinal curvature. Transitional vertebra. No fractures, subluxations, or destructive lesions are visualized Electronically signed by: Davon Gutierres M.D. 01/17/2017 2:20 PM Dictated Date/Time: 01/17/2017 2:19 PM
[2017-01-17] MEDS ORDERED: METH4PAK PO (15:02)
[2017-01-17] MEDS ORDERED: HYDR-5688 PO (15:02)
--- NOTE | 2017-01-17 15:03 | EMERGENCY ROOM VISIT NOTE ---
History First contact with patient: 13:40 Chief Complaint: BACK PAIN Stated Complaint: EXTREME LOWER BACK PAIN RADIATING DOWN R LEG History of Present Illness The patient is a 31 year old female who presents to the Emergency Room via private vehicle with complaints of "extreme lower back pain radiating down right leg". Patient states she has a history of spinal difficulties, noting that she recently had cervical spinal fusion. She states that she has been doing well, and had the surgery on December 21. She notes it was a fusion of C4 and C5. She's been on pain medications since then, and recently ran out of her pain medication and notes that last night she developed low back pain, and radiated down her right leg. She rates the pain as an 8/10, describes it as sharp and stabbing in nature. She notes that it feels similar to when she first presented with her neck pain. She states that she follows with Dr. Louis. She states that her right leg does feel slightly weak, but notes that it is mostly pain. It has not given out on her. She denies any chance of , fevers, chills, numbness in the genital region, bowel or bladder incontinence, history of kidney stones. There has been no urinary symptoms. Review of Systems A complete 6-point Review of Systems was discussed with the patient, with pertinent positives and negatives listed in the History of Present Illness. All remaining Review of Systems questions can be considered negative unless otherwise specified. Past Medical/Surgical History Medical Problems: (1) Cervical disc disorder (2) HTN (hypertension) (3) Migraine Surgical Problems: (1) History of cholecystectomy Family History Cancer Gallbladder disease Hypertension Social History Smoking Status: Former Smoker Alcohol Use: occasionally Marital Status: Housing Status: lives with family Occupation Status: unemployed Current/Historical Medications Scheduled Cyclobenzaprine Hcl (Flexeril), 10 MG PO TID Methylprednisolone (Medrol Dosepak), 0 PO DAILY Scheduled PRN Albuterol Hfa (Ventolin Hfa), 2 PUFFS INH Q4H PRN for Shortness of Breath Hydrocodone/Acetaminophen 5MG/325MG ([facility] 5MG/325MG), 1-2 TABLET PO Q6 PRN for Pain Naproxen (Naprosyn), 500 MG PO BID PRN for Pain Oxycodone/Acetaminophen 5MG/325MG (Percocet 5MG/325MG), 1-2 TABS PO Q6H PRN for Pain Allergies Coded Allergies: Metoclopramide (Unverified Allergy, Unknown, NERVE ENDING DAMAGE, 01/17/17) Physical Exam Vital Signs Date Time Temp Pulse Resp B/P Pulse Ox O2 Delivery O2 Flow Rate FiO2 01/17/17 15:18 82 18 96 01/17/17 13:02 36.8 107 18 132/81 92 Room Air Physical Exam VITAL SIGNS - Vital signs and nursing notes were reviewed. Afebrile, normotensive, slightly tachycardic at a rate of 107 bpm, and is saturating on room air 92%, and upon reevaluation was 96%. GENERAL -31-year-old female appearing her stated age who is in no acute distress. Communicates well with provider and answers questions appropriately. SKIN - Without rashes. The skin overlying the back and leg is unremarkable. HEAD - NC/AT. EYES - Sclera anicteric. Palpebral conjunctiva pink and moist with no injection noted. MOUTH/OROPHARYNX - Without perioral cyanosis. NECK - Neck with FROM. Supple to palpation. No lymphadenopathy noted. No nuchal rigidity. No C-spine tenderness, thoracic tenderness or meningismus. LUNGS - Chest wall symmetric without accessory muscle use, intercostals retractions, or central cyanosis. Normal vesicular breath sounds CTA B/L. No wheezes, rales, or rhonchi appreciated. CARDIAC - RRR with S1/S2. No murmur, rubs, or gallops appreciated. ABDOMEN - Abdominal contour without pulsations or visible masses. BS normoactive all four quadrants. No tenderness, palpable masses, hepatosplenomegaly, or ascites noted. EXTREMITIES - No clubbing or peripheral cyanosis. No pretibial edema present. She is neurovascularly intact in the right lower extremity. +5/5 strength noted in UE/LE bilaterally. MUSCULOSKELETAL: There is tenderness to palpation overlying the inferior spine and radiating down the right leg. Positive straight leg raise on the right. Negative straight leg raise on the left. Full range of motion of the spine. NEUROLOGIC - Cranial nerves II through XII grossly intact. No neurovascular deficits in the lower extremity. PSYCH - . Pt is very pleasant and interacts well with examiner. Medical Decision & Procedures ER Provider Diagnostic Interpretation: L-SPINE MIN 4 VIEWS ROUTINE CLINICAL HISTORY: Low back pain, radiating to right leg COMPARISON STUDY: No previous studies for comparison. FINDINGS: There is a transitional vertebra present. There is a mild spinal curvature convex to the left. There are minor degenerative changes. No acute fractures or traumatic subluxations are visualized. No destructive lesions are evident. IMPRESSION: Minor spinal curvature. Transitional vertebra. No fractures, subluxations, or destructive lesions are visualized Electronically signed by: Davon Gutierres M.D. 01/17/2017 2:20 PM Dictated Date/Time: 01/17/2017 2:19 PM Medications Administered Medications (Trade) Dose Ordered Sig/Osvaldo Route Start Time Stop Time Status Last Admin Dose Admin Acetaminophen/ Hydrocodone Bitart ([facility] 5/325 Tab) 1 tab NOW STAT PO 01/17/17 13:53 01/17/17 13:54 DC 01/17/17 14:17 1 TAB Dexamethasone Sodium Phosphate (Decadron Inj) 10 mg NOW STAT IM 01/17/17 14:03 01/17/17 14:05 DC 01/17/17 14:16 10 MG Medical Decision Patient was seen and evaluated as above. After obtaining a thorough history and physical examination there was identified that the patient was likely expressing a bulging disc in the lumbar spine affecting the nerve traveling down the right leg. There was no evidence of complete compromise or cauda equina syndrome. Patient was nontoxic in appearance. Radiograph was obtained of the L-spine, patient denied chance of . She was given one [facility] tablet for her pain. She was given 10 mg of Decadron IM. She is reevaluated and was still experiencing 8.5/10 pain, however once given her radiograph results, the decision was made whether or not to obtain an MRI. At this time she elected to follow up with her irrigation installation specialist by: The first thing tomorrow morning and if at that point an MRI was warranted that it may be ordered but was happy with plan of care today. I then offered additional pain medication to alleviate her pain however she elected to go home with the oral pain medication, and rest. I do believe this is reasonable, and she seemed happy with plan of care. She was instructed to call her irrigation installation specialist first thing tomorrow morning, and to return with any worsening of her condition. She was educated upon worrisome symptoms in which to return, had questions answered prior to discharge and was discharged home with a short-term supply of [facility] and Medrol Dosepak in good condition. In evaluation treatment this patient following differential diagnoses were entertained: Renal calculi, pyelonephritis, UTI, AAA, cauda equina syndrome, lumbar strain, bulging discs, among others. [place] Drug Monitoring Program Search Results: patient reviewed within database, no issues identified Impression Primary Impression: Lumbar pain with radiation down right leg Departure Information Dispostion Home / Self-Care Condition GOOD Prescriptions Methylprednisolone (MEDROL DOSEPAK) 4 Mg Darron 0 PO DAILY, #1 PKT Prov: Margarito Amin PA-C 01/17/17 Hydrocodone/Acetaminophen 5MG/325MG ([facility] 5MG/325MG) Tab 1-2 TABLET PO Q6 Y for Pain, #15 TAB For Initial Treatment Prov: Margarito Amin PA-C 01/17/17 Referrals No Doctor, Assigned (PCP) James Louis, DO Patient Instructions My [facility] Additional Instructions You have been treated in the Emergency Department for Back Pain. You have received pain medicine in the emergency department which impairs your ability to operate a vehicle. It is illegal for you to drive after receiving these medicines. You have been prescribed NORCO to be used for pain control. This is a narcotic medication. You cannot drive or consume alcohol while on this medicine. This medicine should only be used for pain that cannot be controlled with over-the- counter pain medicines. You have been prescribed a Medrol Dosepak. Take this medication as prescribed. You should take the COMPLETE 6-day course of this medication. This is an anti- inflammatory medicine that will help to minimize your symptoms. For pain control, you can use the following [id number] medicines (if >12 yo): DO NOT TAKE TYLENOL WITH THE NORCO!! - Regular strength (200 mg/tab) Advil (ibuprofen) 1-2 tabs every 4-6 hours as needed. Do not exceed a dose of 3200 mg per day. If this is an acute injury, ice can be applied to the area of pain for the first 3 days to help decrease pain and inflammation. After the first 3 days, a heating pad can be used over the area for continued soothing relief. You should schedule a follow-up appointment tomorrow with Dr. Louis by calling his office. Return to the Emergency Department if your current symptoms worsen despite treatment course outlined above, or if you develop any of the following symptoms : intractable pain despite aforementioned treatment course, loss of control of your bowel or bladder, numbness or tingling in your groin, or development of a fever. Please return to the emergency department with any new/concerning symptoms.
[2017-01-17 15:18] VITALS: PULSE 82; O2SAT 96
== END 2017-01-17 15:19 | disposition home or self-care (01) ==
LOC: C.EDB 13:00 → C.EDD 15:19
DX: M54.5 Low back pain (principal); Z98.1 Arthrodesis status; I10 Essential (primary) hypertension; Z90.49 Acquired absence of other specified parts of digestive tract; Z80.9 Family history of malignant neoplasm, unspecified; Z82.49 Family history of ischemic heart disease and other diseases of the circulatory system; Z87.891 Personal history of nicotine dependence